=== PATIENT | male | born 1965 | race Caucasian/White ===

== ENCOUNTER 2022-06-23 18:20 | Inpatient (IN) | payer MEDICARE, MEDICAID, SELFPAY ==
--- NOTE | ~2022-06-23 | CT_ITS ---
EXAMINATION: CT abdomen pelvis w con DATE: 06/23/2022 20:44 INDICATION: Abdominal pain TECHNIQUE: Computed tomography (CT) of the abdomen and pelvis was performed with 100 mL Omnipaque-350 intravenous contrast. Automated exposure control and iterative reconstruction technique were employe d. The dose-length product was 446.28 mGy-cm. COMPARISON: None. FINDINGS: Lower thorax: Aortic valve and coronary artery calcification. Liver: Right lobe hypodensity, too small to characterize. Biliary/Gallbladder: Gallbladder is normal. No bile duct dilation. Pancreas: Pancreatic atrophy. Multiple coarse pancreatic calcifications likely indicative of chronic pancreatitis. Peripancreatic fluid and fat stranding about the pancreatic body Spleen: Normal. Adrenals:No mass. Kidneys: No mass, stone, or hydronephrosis. GI tract: Air-filled, mildly dilated transverse colon, likely representing localized ileus from adjac ent pancreatic process. Normal appendix. Mesentery/Peritoneum: No ascites, mass, or free air. Retroperitoneum: No mass. Atherosclerotic abdominal aortic and/or arterial calcifications. Pelvis: Pelvic organs are within normal limits. Soft Tissues: Soft tissues and body wall unremarkable. Bones: No acute osseous finding. IMPRESSION: Acute on chronic pancreatitis. Reviewed, dictated and finalized at location K.
[2022-06-23 19:09] VITALS: BP 145/102; PULSE 109; RESP 18; TEMP 36.6; O2SAT 98
[2022-06-23 19:30] LABS: Appearance Urine Clear (Clear); Basophils Percent Auto 0.3 % (0.2-1.2); Bilirubin Urine 2+ (Negative); Blood Urine Negative (Negative); Color Urine Yellow (Yellow); Eosinophils Absolute Auto 0.2 K/mm3 (0-0.3); Eosinophils Percent Auto 1.7 % (0-4.4); Glucose Urine UA Negative (Negative); Hematocrit 45.5 % (42.0-52.0); Hemoglobin 16.1 g/dL (14.0-18.0); Immature Granulocyte Absolute 0.04 K/mm3 (0.00-0.031); Immature Granulocyte Percent A 0.3 % (0-0.5); Ketones Urine 1+ mg/dL (Negative); Leukocyte Esterase Ur Negative LEU/UL (Negative); Lymphocytes Absolute Auto 2.41 K/mm3 (0.9-3.2); Lymphocytes Percent Auto 20.8 % (18.3-44.2); Mean Corpuscular HGB Conc 35.4 g/dl (32-36); Mean Platelet Volume 9.8 fl (7.4-10.4); Monocytes Absolute Auto 0.8 K/mm3 (0.1-0.6); Monocytes Percent Auto 7.1 % (2.6-8.5); Neutrophils Absolute Auto 8.1 K/mm3 (1.3-6.7); Neutrophils Percent Auto 69.8 % (45.5-73.1); Nitrate Urine Negative (Negative); Platelet Count Result 247 k/mm3 (150-375); Protein Urine 2+ mg/dL (Negative); Red Blood Count 4.74 M/mm3 (4.6-6.20); Red Cell Distribution Width 12.8 % (11.5-14.5); Specific Grav Ur 1.015 (1.001-1.035); White Blood Count 11.6 K/mm3 (4.5-10.0); pH Urine >=9.0 (5.0-9.0)
[2022-06-23 19:33] LABS: Mucus Urine Heavy /lpf; RBC Urine 0-2 /hpf (0-2); Squamous Epithelial Cell Urine Rare /hpf (Few); WBC Urine 0-3 /hpf
[2022-06-23 19:37] LABS: Add Urine Microscopic? YES
[2022-06-23 19:40] LABS: Alanine Aminotransferase 20 U/L (6-50); Albumin Level 4.4 g/dL (3.5-5.1); Alkaline Phosphatase 81 U/L (38-126); Anion Gap 10 mmol/L (8-16); Aspartate Amino Transferase 22 U/L (17-59); Bilirubin,Total 0.5 mg/dL (0.2-1.3); Blood Urea Nitrogen 10 mg/dL (9-20); Calcium 9.5 mg/dL (8.4-10.2); Carbon Dioxide 27 mmol/L (22-30); Chloride 101 mmol/L (98-107); Estimated CRCL calculation 91 ml/min; Estimated Glomerular Filt Rate > 60; Glucose 135 mg/dL (65-110); Lipase 329 U/L (23-300); Potassium 3.6 mmol/L (3.4-5.0); Sodium 138 mmol/L (137-145)
--- NOTE | 2022-06-23 20:26 | ED.ABDPAIN ---
HPI - Abdominal Pain General Chief Complaint: Abdominal Pain Stated Complaint: abd pain Time Seen by Provider: 06/23/22 20:22 Source: patient Mode of arrival: ambulatory Limitations: no limitations History of Present Illness HPI narrative: 56 years old white male presents with diffuse abdominal pain that started 2 days ago associated with nausea and vomiting. He denies any fever, chills, diarrhea, constipation, urinary symptoms, history of abdominal surgery. Patient does not take medicine at home. History of tobacco use, intermittent alcohol, no drugs. Related Data Home Medications Medication Instructions Recorded Confirmed No Home Medications 06/23/22 06/23/22 Allergies Allergy/AdvReac Type Severity Reaction Status Date / Time No Known Allergies Allergy Verified 06/23/22 18:21 Review of Systems Review of Systems: All systems reviewed & are unremarkable except as noted in HPI and below Exam Narrative: General appearance: Well-developed, well-nourished Skin: Normal color Head: Normocephalic, nontraumatic Eyes: Clear conjunctiva ENT: Oropharynx normal, ears normal, nose normal Neck: Supple, nontender Chest and respiratory: Airway patent, no respiratory distress, no accessory muscle use Heart: Regular rate/rhythm Abdomen: Diffuse abdominal tenderness, distention, quiet bowel sounds, no guarding, no rebound Vascular: Normal peripheral pulses, normal capillary refill. Musculoskeletal: Normal range of motion, nontender back Neurologic: Alert and oriented ?3, [employer]AG [employer] is normal as tested, no gross motor deficit Course Vital Signs Vital signs: Vital Signs Temperature 36.6 C 06/23/22 19:09 Pulse Rate 109 H 06/23/22 19:09 Respiratory Rate 18 06/23/22 19:09 Blood Pressure 145/102 H 06/23/22 19:09 Pulse Oximetry 98 06/23/22 19:09 Temperature 36.6 C 06/23/22 19:09 Pulse Rate 109 H 06/23/22 19:09 Respiratory Rate 18 06/23/22 19:09 Blood Pressure 145/102 H 06/23/22 19:09 Pulse Oximetry 98 06/23/22 19:09 MDM - Abdominal Pain Lab Data Result diagrams: 06/23/22 19:19 06/23/22 19:19 Labs: Lab Results 06/23/22 06/23/22 06/23/22 Range/Units 19:19 19:19 19:19 WBC 11.6 H (4.5-10.0) K/mm3 RBC 4.74 (4.6-6.20) M/mm3 Hgb 16.1 (14.0-18.0) g/dL Hct 45.5 (42.0-52.0) % MCV 96.0 (80-100) fl MCH 34.0 (26-34) pg MCHC 35.4 (32-36) g/dl RDW 12.8 (11.5-14.5) % Plt Count 247 (150-375) k/mm3 MPV 9.8 (7.4-10.4) fl Immature Gran % (Auto) 0.3 (0-0.5) % Neut % (Auto) 69.8 (45.5-73.1) % Lymph % (Auto) 20.8 (18.3-44.2) % [place] % (Auto) 7.1 (2.6-8.5) % Eos % (Auto) 1.7 (0-4.4) % Baso % (Auto) 0.3 (0.2-1.2) % Lymph # (Auto) 2.41 (0.9-3.2) K/mm3 [place] # (Auto) 0.8 H (0.1-0.6) K/mm3 Eos # (Auto) 0.2 (0-0.3) K/mm3 Baso # (Auto) 0.0 (0.0-0.1) K/mm3 Abs Immat Gran (auto) 0.04 H (0.00-0.031) K/mm3 Absolute Neuts (auto) 8.1 H (1.3-6.7) K/mm3 Absolute Nucleated RBC 0.0 (0.0-0.012) K/mm3 Nucleated RBC % 0.0 (0.0-0.2) % Sodium 138 (137-145) mmol/L Potassium 3.6 (3.4-5.0) mmol/L Chloride 101 (98-107) mmol/L Carbon Dioxide 27 (22-30) mmol/L Anion Gap 10 (8-16) mmol/L BUN 10 (9-20) mg/dL Creatinine 0.80 (0.7-1.3) mg/dL Estim Creat Clear Calc 91 ml/min Estimated GFR > 60 (59 - ) Glucose 135 H (65-110) mg/dL Calcium 9.5 (8.4-10.2) mg/dL Total Bilirubin 0.5 (0.2-1.3) mg/dL AST 22 (17-59) U/L ALT 20 (6-50) U/L Alkaline Phosphatase 81 (38-126) U/L Total Protein 7.0 (6.3-8.2) g/dL Albumin 4.4 (3.5-5.1) g/
[2022-06-23] MEDS: HYDROmorphone HCL INJ (*CRX) 1 MG/ML SYR 0.5 MG IV PUSH ×2 (20:46→21:51)
[2022-06-23] MEDS: SODIUM CHLORIDE 0.9% IV 1,000 ML 999 ML IV CONT (20:46)
[2022-06-23] MEDS: ONDANSETRON INJ 4 MG/2 ML VIAL IV PUSH (20:51)
[2022-06-23 21:18] VITALS: BP 156/91; PULSE 83; RESP 16; TEMP 36.8; O2SAT 96
[2022-06-23] MEDS: SODIUM CHLORIDE 0.9% IV 1,000 ML 200 ML IV CONT (21:51)
[2022-06-23 21:59] VITALS: BP 136/77; PULSE 73; RESP 16; TEMP 36.7; O2SAT 99
--- NOTE | 2022-06-23 22:51 | ADMGEN ---
This patient, Bert Marques, was admitted to Medical Room 257-01. Patient/family oriented to hospital policies and general routines including ID bracelet, bed and alarms, visiting hours, pain management, procedures, bathroom and other care routines, personal items, smoking policy, room service/diet, and visiting hours. Information on how to activate the Rapid Response Team has been discussed. Patient/Family are encouraged to report perceived risks to care and to ask questions if they do not understand what they are told or what they should do.
[2022-06-23 23:00] VITALS: O2SAT 94
[2022-06-23 23:01] VITALS: BP 134/85; PULSE 73; RESP 12; TEMP 36.5; O2SAT 93; BMI 25.2
--- NOTE | 2022-06-23 23:03 | PM.IMHP ---
H&P: HPI History of Present Illness Date/Time: 06/23/22 23:03 Chief Complaint: Abdominal pain Narrative: This is a 56-year-old male with past medical history significant for chronic pancreatitis, alcohol dependence, tobacco dependence. Patient presents today due to abdominal pain diffusely localized not in achy pain for the last 2 days or so, nausea and vomiting unable to keep anything down, patient denies any fevers, rigors, chills, cough, sputum production, diarrhea. Patient drinks from a 12 pack to 30 years binge drinks on the weekends. preliminary workup was significant for CT of abdomen and pelvis reported as acute on chronic pancreatitis. at the time of my visit patient rated his pain at 9/10 in intensity is only relieved by pain medication. Patient has been admitted for further evaluation management and treatment. Review of Systems Review of Systems: Diffuse abdominal pain, nausea, vomiting unable to keep anything down. Constitutional: Constitutional: Denies chills, Denies fatigue, Denies fever(s), Denies malaise, Denies night sweats and Denies weakness Eyes: Eyes: Denies change in vision ENT: Denies dysphagia, Denies vertigo, Denies dizziness and Denies odynophagia Cardiovascular: Cardiovascular: Denies chest pain, Denies pedal edema, Denies irregular heart rhythm, Denies leg edema, Denies lightheadedness and Denies palpitations Respiratory: Respiratory: Denies change in phlegm color, Denies chest congestion, Denies cough, Denies excessive phlegm production, Denies pain on inspiration and Denies dyspnea Gastrointestinal: Gastrointestinal: Reports abdominal pain, Denies dyspepsia, Denies heartburn, Reports nausea and Reports vomiting Genitourinary: Genitourinary: Reports no additional male genitourinary complaints and Reports as per HPI Musculoskeletal: Musculoskeletal: Denies deformity, Denies arthralgias, Denies joint swelling and Denies limited range of motion Integumentary/Breasts: Skin/Breast: Denies rash Neurologic: Denies vertigo, Denies dizziness, Denies focal weakness, Denies Sensory deficit (Neuro) and Denies tremor(s) Psychiatric: Psychiatric: Reports no additional psychiatric complaints and Reports as per HPI Endocrine: Endocrine: Denies cold intolerance, Denies fatigue, Denies flushing, Denies heat intolerance, Denies polyphagia, Denies polydipsia and Denies palpitations Hematologic/Lymphatic: Hematologic/Lymphatic: Reports no additional hematologic/lymphatic complaints and Reports as per HPI Allergic/Immunologic: Allergic/Immunologic: Reports no additional allergic/immunologic complaints and Reports as per HPI [facility] Social History Social History Smoking packs per day: 1.5 Smoking cigarettes per day: 30.0 Smoking status: Heavy tobacco smoker Second hand tobacco smoke exposure: Yes Alcohol intake: current Drinks per week: 12 Substance use: never Spiritual care concerns: No Meds Home Medications and Allergies Home Medications Medication Instructions Recorded Confirmed Type No Home Medications 06/23/22 06/23/22 History Allergies Allergy/AdvReac Type Severity Reaction Status Date / Time No Known Allergies Allergy Verified 06/23/22 18:21 Vital Signs Vital Signs - 24 hr 06/23/22 19:09 06/23/22 21:18 06/23/22 21:59 Temperature 97.8 F 98.3 F 98.0 F Pulse Rate 109 H 83 73 Respiratory Rate 18 16 16 Blood Pressure 145/102 H 156/91 H 136/77 Pulse Oximetry 98 96 99 06/23/22 23:01 Temperature 97.7 F Pulse Rate 73 Respiratory Rate 12 Blood Pressure 134/85 Pulse Oximetry 93 Exam Narrative: patient is laying in a stretcher Const: General: comfortable, no acute distress, well developed, alert and awake Nutritional Appearance: average body habitus Orientation/consciousness: patient oriented x3 HENMT: Head: normal to inspection, normocephalic and atraumatic Ears: hearing grossly normal bilaterally Fa
[2022-06-24] MEDS: SODIUM CHLORIDE 0.9% IV 1,000 ML 200 ML IV CONT ×2 (03:41→09:01)
[2022-06-24 04:15] VITALS: BP 140/84; PULSE 78; RESP 12; TEMP 36.8; O2SAT 94
[2022-06-24 06:11] LABS: Alanine Aminotransferase 15 U/L (6-50); Albumin Level 3.3 g/dL (3.5-5.1); Alkaline Phosphatase 61 U/L (38-126); Anion Gap 6 mmol/L (8-16); Aspartate Amino Transferase 19 U/L (17-59); Bilirubin,Total 0.4 mg/dL (0.2-1.3); Blood Urea Nitrogen 8 mg/dL (9-20); Calcium 8.3 mg/dL (8.4-10.2); Carbon Dioxide 28 mmol/L (22-30); Chloride 104 mmol/L (98-107); Estimated CRCL calculation 88 ml/min; Estimated Glomerular Filt Rate > 60; Glucose 104 mg/dL (65-110); Lipase 324 U/L (23-300); Potassium 3.5 mmol/L (3.4-5.0); Sodium 138 mmol/L (137-145)
[2022-06-24 07:01] LABS: Basophils Percent Auto 0.3 % (0.2-1.2); Eosinophils Absolute Auto 0.2 K/mm3 (0-0.3); Hematocrit 42.5 % (42.0-52.0); Hemoglobin 14.5 g/dL (14.0-18.0); Immature Granulocyte Absolute 0.03 K/mm3 (0.00-0.031); Immature Granulocyte Percent A 0.3 % (0-0.5); Lymphocytes Absolute Auto 1.88 K/mm3 (0.9-3.2); Lymphocytes Percent Auto 21.9 % (18.3-44.2); Mean Corpuscular HGB Conc 34.1 g/dl (32-36); Mean Corpuscular Volume 99.5 fl (80-100); Mean Platelet Volume 10.2 fl (7.4-10.4); Monocytes Absolute Auto 0.6 K/mm3 (0.1-0.6); Monocytes Percent Auto 7.4 % (2.6-8.5); Neutrophils Absolute Auto 5.9 K/mm3 (1.3-6.7); Neutrophils Percent Auto 68.1 % (45.5-73.1); Platelet Count Result 201 k/mm3 (150-375); Red Blood Count 4.27 M/mm3 (4.6-6.20); White Blood Count 8.6 K/mm3 (4.5-10.0)
[2022-06-24 07:07] LABS: Magnesium 1.9 mg/dL (1.6-2.3)
--- NOTE | 2022-06-24 09:00 | PM.IMPN ---
Progress Note: A&P Assessment and Plan (1) Acute on chronic pancreatitis: Code(s): K85.90 - Acute pancreatitis without necrosis or infection, unspecified; K86.1 - Other chronic pancreatitis Status: Acute Assessment and Plan: Abd/Pel Ct shows acute on chronic pancreatitis NPO except ice chips, advance as tolerated Lipase 324 GI consult IV fluids 200ml/hr, decrease to 100ml/hr Pain management with Dilaudid, Tylenol, add PO [place] Zofran 4mg IV Trend labs Probably related to alcohol abuse (2) Alcohol dependence: Code(s): F10.20 - Alcohol dependence, uncomplicated Status: Acute Assessment and Plan: CIWA protocol as needed Librium PRN Valium PRN Folic acid and thiamine Trend and replace electrolytes as indicated Adjust as indicated Cessation education given (3) Tobacco dependence: Code(s): F17.200 - Nicotine dependence, unspecified, uncomplicated Status: Acute Assessment and Plan: nicotine patch as needed Education about cessation Time Spent With Patient Time with patient: Greater than 35 minutes Subjective Date/time seen: 06/24/22899 Interval history: 06/24/22899 patient stated that he seems to be doing okay. He is very sore however and rates his pain a 9/10. He does not have any nausea or vomiting, diarrhea, constipation, chest pain or shortness of breath. He stating that his abdominal pain is generalized and does have tenderness with palpitation. I did talk to him about drinking and pancreatitis. I also updated him with care plan of care and the next steps. Drinking cessation and tobacco to cessation has been given. I also spoke with patient about alcohol withdrawal symptoms and to remain on top of it. Patient verbalized understanding at this time. 06/23/22? 23:03 ?This is a 56-year-old male with past medical history significant for chronic pancreatitis, alcohol dependence, tobacco dependence.? Patient presents today due to abdominal pain diffusely localized not in achy pain for the last 2 days or so, nausea and vomiting unable to keep anything down, patient denies any fevers, rigors, chills, cough, sputum production, diarrhea.? Patient drinks from a 12 pack to 30 years binge drinks on the weekends.? preliminary workup was significant for CT of abdomen and pelvis reported as acute on chronic pancreatitis.? at the time of my visit patient rated his pain at 9/10 in intensity is only relieved by pain medication.? Patient has been admitted for further evaluation management and treatment. Review of Systems Review of Systems: All systems reviewed & are unremarkable except as noted in HPI and below Exam Const: General: comfortable, no acute distress, well developed, alert and awake Nutritional Appearance: average body habitus Orientation/consciousness: patient oriented x3 HENMT: Head: normal to inspection, normocephalic and atraumatic Ears: hearing grossly normal bilaterally Face and sinus: normal facial exam Eyes: General: appearance normal, both eyes and all related structures Pupils: Equal, round and reactive pupils present EOM: EOMs intact bilaterally Neck: Neck: full ROM, no lymphadenopathy and no JVD Thyroid: thyroid normal Lymphatic: no lymphadenopathy noted Resp: Effort & Inspection: normal respiratory effort and able to speak in complete sentences Auscultation: clear to auscultation bilaterally Cardio: Jugular venous distension: no JVD Rate: regular rate Rhythm: regular rhythm Heart sounds: S1 normal heart sound present and S2 normal heart sound present GI: Inspection: normal to inspection, distended and Pannus present GI Palp: Yes Soft to palpation and Yes Tenderness to palpation present (GI) Auscultation: Hypoactive bowel sounds present Rectal Exam: deferred : General: Yes deferred Skin: Rashes: no rashes Wounds: no wounds Neuro: General: patient orie
[2022-06-24] MEDS: THIAMINE HCL 100 MG TABLET PO (09:01)
[2022-06-24] MEDS: FOLIC ACID 1 MG TABLET PO (09:01)
[2022-06-24] MEDS: ENOXAPARIN 40 MG/0.4 ML SYRINGE SUB-Q (09:01)
[2022-06-24] MEDS: HYDROmorphone HCL INJ (*CRX) 1 MG/ML SYR 0.5 MG IV PUSH ×2 (09:18→14:25)
[2022-06-24 12:00] VITALS: PULSE 68
[2022-06-24 14:18] VITALS: BP 136/91; PULSE 87; RESP 18; TEMP 36.4; O2SAT 97
--- NOTE | 2022-06-24 15:43 | WPDGICN ---
Assessment and Plan Assessment and plan (1) Abdominal pain: Code(s): R10.9 - Unspecified abdominal pain Status: Acute Assessment and Plan: his pain started Tuesday. Clinically it is all due to pancreatitis. His lipase is not that high, this is consistent with chronic pancreatitis and not being able to generate a high lipase. The patient however states that he has never had pancreatitis in the past. (2) Acute on chronic pancreatitis: Code(s): K85.90 - Acute pancreatitis without necrosis or infection, unspecified; K86.1 - Other chronic pancreatitis Status: Acute Assessment and Plan: As mentioned above, he has not had pancreatitis in the past to his knowledge but the calcifications of the pancreas indicate that his pancreas has been inflamed. This is almost certainly due to chronic alcohol abuse. I told the patient that we the pancreas needs arrested that we will not feed him anything other than clear liquids until his pain has subsided I think that we could probably give him a trial of clear liquids. (3) Alcohol dependence: Code(s): F10.20 - Alcohol dependence, uncomplicated Status: Acute Assessment and Plan: I discussed with the patient of the effects of alcohol on the pancreas as well as the liver and other organs. I explained that he is at risk for developing chronic pancreatitis with chronic pain. I told that it is imperative that he stop drinking alcohol, because 1 to person has had pancreatitis, it is much easier to get it again. GI Consult Note Consult date/time: 06/24/22 15:43 HPI: Bert Marques is a 56 year old male Was admitted yesterday after presenting to the emergency room with severe abdominal pain which began late Tuesday. Tuesday morning he had a couple of cups of coffee and vomited that up he did not try to eat anything afterwards the pain has been persistent diffuse throughout the abdomen. On presentation to the emergency room he was found to have pancreatitis on CT scan. There were calcifications consistent with chronic pancreatitis. The patient however states that he has never had pancreatitis before. He states that he has never had pain like this before or been hospitalized with abdominal symptoms. He is not under physician's care at this time. Admits that he drinks about 12 beers per day and more on weekends. He also smokes daily. He denies any recent problems with heartburn, dysphagia, bowel irregularities, blood in stools. He denies any family history of pancreatic disease or liver disease. Review of Systems Review of Systems: All systems reviewed & are unremarkable except as noted in HPI and below PMFSH Past Medical History Medical History No significant past medical history Surgical History Surgical History No pertinent past surgical history Family History Family History Father Kidney disease Mother Cancer Social History Social History Social History: patient has 1 daughter who is 11 years old Who currently lives with him. Patient elects his sister Joyce Angel to be his surrogate if he cannot make his own decisions. Patient wishes to be a full code at this time. He also denies having any pets. Smoking packs per day: 1.5 Smoking cigarettes per day: 30.0 Smoking status: Heavy tobacco smoker Second hand tobacco smoke exposure: Yes Alcohol intake: current Drinks per week: 12 Substance use: never Living arrangements: with family Additional occupation/education comments: on disability Gender identity (if verbalized by the patient): Male Sexual Orientation (if Verbalized by the Patient): Straight or Heterosexual Spiritual care concerns: No Agree to blood products: Yes Meds Home M
[2022-06-24 16:00] VITALS: PULSE 76
[2022-06-24] MEDS: SODIUM CHLORIDE 0.9% IV 1,000 ML 100 ML IV CONT (19:05)
[2022-06-24 20:37] VITALS: BP 135/78; PULSE 95; RESP 20; TEMP 36.3; O2SAT 94
[2022-06-25] MEDS: HYDROmorphone HCL INJ (*CRX) 1 MG/ML SYR 0.5 MG IV PUSH ×2 (00:46→08:27)
[2022-06-25] MEDS: SODIUM CHLORIDE 0.9% IV 1,000 ML 100 ML IV CONT ×2 (04:40→14:48)
[2022-06-25 04:46] VITALS: BP 139/82; PULSE 79; RESP 20; TEMP 36.4; O2SAT 95
[2022-06-25 04:58] LABS: Basophils Percent Auto 0.4 % (0.2-1.2); Eosinophils Absolute Auto 0.2 K/mm3 (0-0.3); Eosinophils Percent Auto 3.1 % (0-4.4); Hematocrit 38.3 % (42.0-52.0); Immature Granulocyte Absolute 0.02 K/mm3 (0.00-0.031); Immature Granulocyte Percent A 0.3 % (0-0.5); Lymphocytes Absolute Auto 2.01 K/mm3 (0.9-3.2); Lymphocytes Percent Auto 25.7 % (18.3-44.2); Mean Corpuscular HGB Conc 33.9 g/dl (32-36); Mean Corpuscular Hemoglobin 33.8 pg (26-34); Mean Corpuscular Volume 99.5 fl (80-100); Mean Platelet Volume 10.2 fl (7.4-10.4); Monocytes Absolute Auto 0.6 K/mm3 (0.1-0.6); Monocytes Percent Auto 7.3 % (2.6-8.5); Neutrophils Absolute Auto 4.9 K/mm3 (1.3-6.7); Neutrophils Percent Auto 63.2 % (45.5-73.1); Platelet Count Result 190 k/mm3 (150-375); Red Blood Count 3.85 M/mm3 (4.6-6.20); Red Cell Distribution Width 12.8 % (11.5-14.5); White Blood Count 7.8 K/mm3 (4.5-10.0)
[2022-06-25 05:14] LABS: Alanine Aminotransferase 13 U/L (6-50); Albumin Level 3.1 g/dL (3.5-5.1); Alkaline Phosphatase 47 U/L (38-126); Anion Gap 6 mmol/L (8-16); Aspartate Amino Transferase 17 U/L (17-59); Bilirubin,Total 0.5 mg/dL (0.2-1.3); Blood Urea Nitrogen 7 mg/dL (9-20); Calcium 7.9 mg/dL (8.4-10.2); Carbon Dioxide 25 mmol/L (22-30); Chloride 105 mmol/L (98-107); Estimated CRCL calculation 98 ml/min; Estimated Glomerular Filt Rate > 60; Glucose 89 mg/dL (65-110); Lipase 92 U/L (23-300); Magnesium 1.8 mg/dL (1.6-2.3); Potassium 3.5 mmol/L (3.4-5.0); Sodium 136 mmol/L (137-145)
[2022-06-25 08:16] VITALS: RESP 20; O2SAT 96
[2022-06-25] MEDS: FOLIC ACID 1 MG TABLET PO (08:23)
[2022-06-25] MEDS: THIAMINE HCL 100 MG TABLET PO (08:23)
[2022-06-25] MEDS: ENOXAPARIN 40 MG/0.4 ML SYRINGE SUB-Q (08:23)
--- NOTE | 2022-06-25 08:30 | PM.IMPN ---
Progress Note: A&P Assessment and Plan (1) Acute on chronic pancreatitis: Code(s): K85.90 - Acute pancreatitis without necrosis or infection, unspecified; K86.1 - Other chronic pancreatitis Status: Acute Assessment and Plan: Abd/Pel Ct shows acute on chronic pancreatitis Diet advanced to full liquids at this time Lipase 324 upon admission currently at 92 GI consult IV fluids can be DC'd if patient is drinking Pain management with Dilaudid, Tylenol, add PO [place] Zofran 4mg IV Trend labs Probably related to alcohol abuse Still complaining of a lot of pain (2) Alcohol dependence: Code(s): F10.20 - Alcohol dependence, uncomplicated Status: Acute Assessment and Plan: CIWA protocol as needed Librium PRN Valium PRN Folic acid and thiamine Trend and replace electrolytes as indicated Adjust as indicated Cessation education given (3) Tobacco dependence: Code(s): F17.200 - Nicotine dependence, unspecified, uncomplicated Status: Acute Assessment and Plan: nicotine patch as needed Education about cessation Time Spent With Patient Time with patient: Greater than 35 minutes Subjective Date/time seen: 06/25/22829 Interval history: 06/25/22829 Patient stated that he is still very sore and states that it feels like his muscles are just very tight. He is rating his pain a 7 or an 8 today. He is tolerating clear liquids will advance diet to full liquids as he seems to be doing well with clears. Lipase is down today to 92. He denies any chest pain, shortness of breath, nausea, vomiting, diarrhea, constipation. 06/24/22 0900 patient stated that he seems to be doing okay. He is very sore however and rates his pain a 9/10. He does not have any nausea or vomiting, diarrhea, constipation, chest pain or shortness of breath. He stating that his abdominal pain is generalized and does have tenderness with palpitation. I did talk to him about drinking and pancreatitis. I also updated him with care plan of care and the next steps. Drinking cessation and tobacco to cessation has been given. I also spoke with patient about alcohol withdrawal symptoms and to remain on top of it. Patient verbalized understanding at this time. 06/23/22? 23:03 ?This is a 56-year-old male with past medical history significant for chronic pancreatitis, alcohol dependence, tobacco dependence.? Patient presents today due to abdominal pain diffusely localized not in achy pain for the last 2 days or so, nausea and vomiting unable to keep anything down, patient denies any fevers, rigors, chills, cough, sputum production, diarrhea.? Patient drinks from a 12 pack to 30 years binge drinks on the weekends.? preliminary workup was significant for CT of abdomen and pelvis reported as acute on chronic pancreatitis.? at the time of my visit patient rated his pain at 9/10 in intensity is only relieved by pain medication.? Patient has been admitted for further evaluation management and treatment. Review of Systems Review of Systems: All systems reviewed & are unremarkable except as noted in HPI and below Exam Narrative: patient is laying in a stretcher Const: General: comfortable, no acute distress, well developed, alert and awake Nutritional Appearance: average body habitus Orientation/consciousness: patient oriented x3 HENMT: Head: normal to inspection, normocephalic and atraumatic Ears: hearing grossly normal bilaterally Face and sinus: normal facial exam Eyes: General: appearance normal, both eyes and all related structures Pupils: Equal, round and reactive pupils present EOM: EOMs intact bilaterally Neck: Neck: full ROM, no lymphadenopathy and no JVD Thyroid: thyroid normal Lymphatic: no lymphadenopathy noted Resp: Effort & Inspection: normal respiratory effort and able to speak in complete sentences Auscultation: mary
[2022-06-25 14:23] VITALS: BP 146/88; PULSE 73; RESP 18; TEMP 36.6; O2SAT 96
[2022-06-25 14:44] VITALS: O2SAT 95
--- NOTE | 2022-06-25 15:09 | WPDGIPROGNO ---
Progress Note: A&P Assessment and Plan (1) Abdominal pain: Code(s): R10.9 - Unspecified abdominal pain Status: Acute Assessment and Plan: his pain started Tuesday. Clinically it is all due to pancreatitis. His lipase is not that high, this is consistent with chronic pancreatitis and not being able to generate a high lipase. The patient however states that he has never had pancreatitis in the past. 06/25/2022 his pain is better he is getting by with less frequent requests for pain medication. (2) Acute on chronic pancreatitis: Code(s): K85.90 - Acute pancreatitis without necrosis or infection, unspecified; K86.1 - Other chronic pancreatitis Status: Acute Assessment and Plan: As mentioned above, he has not had pancreatitis in the past to his knowledge but the calcifications of the pancreas indicate that his pancreas has been inflamed. This is almost certainly due to chronic alcohol abuse. I told the patient that we the pancreas needs arrested that we will not feed him anything other than clear liquids until his pain has subsided I think that we could probably give him a trial of clear liquids. 06/25/2022 he tolerated full liquids. He thinks he can handle regular food. Today lipase is normal. (3) Alcohol dependence: Code(s): F10.20 - Alcohol dependence, uncomplicated Status: Acute Assessment and Plan: I discussed with the patient of the effects of alcohol on the pancreas as well as the liver and other organs. I explained that he is at risk for developing chronic pancreatitis with chronic pain. I told that it is imperative that he stop drinking alcohol, because 1 to person has had pancreatitis, it is much easier to get it again. 06/25/2022 liver enzymes remain normal. Albumin is a bit low. Surprisingly he does not seem to have any evidence of hepatic dysfunction at this point. I reminded him that he needs to committed to quitting alcohol and that it is imperative that he have no alcohol for the next several weeks to avoid relapse of pancreatitis. Subjective Date/time seen: Bert Marques is a 56 year old male Was admitted yesterday after presenting to the emergency room with severe abdominal pain which began late Tuesday.? Tuesday morning he had a couple of cups of coffee and vomited that up he did not try to eat anything afterwards the pain has been persistent diffuse throughout the abdomen.? On? presentation to the emergency room he was found to have pancreatitis on CT scan.? There were calcifications consistent with chronic pancreatitis.? The patient however states that he has never had pancreatitis before.? He states that he has never had pain like this before or been hospitalized with abdominal symptoms.? He is not under physician's care at this time.? Admits that he drinks about 12 beers per day and more on weekends.? He also smokes daily.? He denies any recent problems with heartburn, dysphagia,? bowel irregularities, blood in stools.? He denies any family history of pancreatic disease or liver disease. 06/25/22 15:09 he is feeling better today. He states that he tolerated tomato soup and other liquids without worsening of his pain. He went about 8 hours between pain medication requests. He has had no vomiting. He is agreeable to trying regular for food. I told that he will be on a low-fat diet for the next several weeks in addition to stay away from alcohol. Exam Const: General: alert Nutritional Appearance: average body habitus Orientation/consciousness: patient oriented x3 Resp: Auscultation: clear to auscultation bilaterally Cardio: Rhythm: regular rhythm GI: GI Palp: Yes abdominal tenderness (Mild), Yes Soft to palpation, No Guarding due to palpation present (GI) and Yes No hepatosplenomegaly present Auscultation: normal bowel sounds Neuro: General: patient oriented x3 Objective Data Vital Signs Vital Signs: Vital Signs - 24 hr 06/24/22 16:00 06/24/22 2
[2022-06-25] MEDS: LIPASE/AMYLASE/PROTEASE 12,000 UNITS CAP 2 CAP PO (16:50)
[2022-06-25 20:00] VITALS: PULSE 86
[2022-06-25 20:12] VITALS: BP 140/78; PULSE 70; RESP 18; TEMP 36.3; O2SAT 95
[2022-06-26] VITALS: PULSE 70
[2022-06-26] MEDS: SODIUM CHLORIDE 0.9% IV 1,000 ML 100 ML IV CONT (00:27)
[2022-06-26 04:18] VITALS: BP 133/74; PULSE 69; RESP 20; TEMP 36.4; O2SAT 95
[2022-06-26 06:01] LABS: Basophils Percent Auto 0.3 % (0.2-1.2); Eosinophils Absolute Auto 0.2 K/mm3 (0-0.3); Eosinophils Percent Auto 2.7 % (0-4.4); Hemoglobin 12.4 g/dL (14.0-18.0); Immature Granulocyte Absolute 0.01 K/mm3 (0.00-0.031); Immature Granulocyte Percent A 0.2 % (0-0.5); Lymphocytes Absolute Auto 1.57 K/mm3 (0.9-3.2); Lymphocytes Percent Auto 23.9 % (18.3-44.2); Mean Corpuscular HGB Conc 33.5 g/dl (32-36); Mean Corpuscular Hemoglobin 33.3 pg (26-34); Mean Corpuscular Volume 99.5 fl (80-100); Mean Platelet Volume 10.4 fl (7.4-10.4); Monocytes Absolute Auto 0.5 K/mm3 (0.1-0.6); Monocytes Percent Auto 7.8 % (2.6-8.5); Neutrophils Absolute Auto 4.3 K/mm3 (1.3-6.7); Neutrophils Percent Auto 65.1 % (45.5-73.1); Platelet Count Result 180 k/mm3 (150-375); Red Blood Count 3.72 M/mm3 (4.6-6.20); Red Cell Distribution Width 12.8 % (11.5-14.5); White Blood Count 6.6 K/mm3 (4.5-10.0)
[2022-06-26 06:12] LABS: Alanine Aminotransferase 20 U/L (6-50); Alkaline Phosphatase 56 U/L (38-126); Anion Gap 7 mmol/L (8-16); Aspartate Amino Transferase 26 U/L (17-59); Bilirubin,Total 0.4 mg/dL (0.2-1.3); Blood Urea Nitrogen 5 mg/dL (9-20); Calcium 8.1 mg/dL (8.4-10.2); Carbon Dioxide 20 mmol/L (22-30); Chloride 106 mmol/L (98-107); Estimated CRCL calculation 98 ml/min; Estimated Glomerular Filt Rate > 60; Glucose 102 mg/dL (65-110); Lipase 62 U/L (23-300); Magnesium 1.9 mg/dL (1.6-2.3); Potassium 3.5 mmol/L (3.4-5.0); Sodium 133 mmol/L (137-145)
[2022-06-26 08:00] VITALS: RESP 20; O2SAT 96
[2022-06-26] MEDS: FOLIC ACID 1 MG TABLET PO (08:01)
[2022-06-26] MEDS: THIAMINE HCL 100 MG TABLET PO (08:01)
[2022-06-26] MEDS: LIPASE/AMYLASE/PROTEASE 12,000 UNITS CAP 2 CAP PO (08:01)
[2022-06-26] MEDS: ENOXAPARIN 40 MG/0.4 ML SYRINGE SUB-Q (08:01)
--- NOTE | 2022-06-26 09:45 | PM.DS ---
DS: Admitting Diagnosis Discharge Date 06/26/22 0945 Admitting Diagnosis Acute on chronic pancreatitis DS: Discharge Diagnosis Discharge Diagnosis (1) Acute on chronic pancreatitis: Code(s): K85.90 - Acute pancreatitis without necrosis or infection, unspecified; K86.1 - Other chronic pancreatitis Status: Acute Assessment and Plan: Abd/Pel Ct shows acute on chronic pancreatitis Diet advanced to full liquids at this time Lipase 324 upon admission currently at 62 GI consult IV fluids can be DC'd if patient is drinking Pain management with Dilaudid, Tylenol, add PO [place] Zofran 4mg IV Trend labs Probably related to alcohol abuse Still complaining of a lot of pain (2) Alcohol dependence: Code(s): F10.20 - Alcohol dependence, uncomplicated Status: Acute Assessment and Plan: CIWA protocol as needed Librium PRN Valium PRN Folic acid and thiamine Trend and replace electrolytes as indicated Adjust as indicated Cessation education given (3) Tobacco dependence: Code(s): F17.200 - Nicotine dependence, unspecified, uncomplicated Status: Acute Assessment and Plan: nicotine patch as needed Education about cessation DS: Summary Hospital Course Hospital Course: patient is a 6-year-old male with no significant past medical history presented to the ED for abdominal pain. Upon arrival patient was noted to have an elevated lipase. CT scan abdomen showed chronic pancreatitis. Patient is a noted alcoholic drinking at minimum 12 beers per day. Patient was started on IV fluids and was made NPO. pain medications were available along with Zofran. GI was consulted for further management. Folic acid and thiamine were added to the Mar. CIWA protocol has been on trend with no notable scores. Patient was given alcohol cessation and tobacco cessation education especially in the light of pancreatitis. It was educated about recurrent pancreatitis due to alcohol consumption. Patient is currently doing well and is tolerating a full diet. Current lipase is 62. Patient denies any chest pain, shortness of breath, nausea, vomiting, diarrhea, constipation, weakness or fatigue. Patient is stable for discharge per labs and vital signs. Status at Discharge Functional status at discharge: independent ambulation Overall status at discharge: patient is progressing back to baseline Time Spent with Patient Time attestation: Total time spent providing and/or coordinating discharge services: 36 minutes Time spent: Greater than 30 minutes Specific discharge activities: Diagnostic testing, chart review, developing a treatment plan, education, care coordination documentation, physical exam, result review Exam Const: General: comfortable, no acute distress, well developed, alert and awake Nutritional Appearance: average body habitus Orientation/consciousness: patient oriented x3 HENMT: Head: normal to inspection, normocephalic and atraumatic Ears: hearing grossly normal bilaterally Face and sinus: normal facial exam Eyes: General: appearance normal, both eyes and all related structures Pupils: Equal, round and reactive pupils present EOM: EOMs intact bilaterally Neck: Neck: full ROM, no lymphadenopathy and no JVD Thyroid: thyroid normal Lymphatic: no lymphadenopathy noted Resp: Effort & Inspection: normal respiratory effort and able to speak in complete sentences Auscultation: clear to auscultation bilaterally Cardio: Jugular venous distension: no JVD Rate: regular rate Rhythm: regular rhythm Heart sounds: S1 normal heart sound present and S2 normal heart sound present GI: Inspection: normal to inspection, distended and Pannus present Auscultation: Hypoactive bowel sounds present Rectal Exam: deferred : General: Yes deferred Skin: Rashes: no rashes Wounds: no wounds Neuro: General: patient oriented x3, CN's I
== END 2022-06-26 11:00 | disposition home or self-care (01) | DRG 440 ==
LOC: ANHED 20:55 → ANH2MED 22:49
PROVIDERS: Admitting Provider Internal Medicine; Emergency Provider Emergency Medicine; PCP Family Medicine; Visit Provider Nurse Practitioner
DX: K85.20 Alcohol induced acute pancreatitis without necrosis or infection (principal); K86.0 Alcohol-induced chronic pancreatitis; F10.20 Alcohol dependence, uncomplicated; F17.210 Nicotine dependence, cigarettes, uncomplicated
CPT/HCPCS: 36415; 74177; 80053; 81001; 83690; 83735; 85025; 96361; 96374; 96375; 99285; A9270; J1170; J1650; J2405; J7030; Q9967